=== PATIENT | male | born 1985 | race African-American/Black ===

== ENCOUNTER 2020-11-07 05:10 | Emergency (ER) | payer BC ==
[~2020-11-07] VITALS: Ht 180.3 cm; Wt 56.8 kg
[~2020-11-07 05:10] MED LIST: AUGMENTIN 875 M1 TAB PO; COMBIVENT INH14.7 GM IH; VENTOLIN0.09 MG IH
[2020-11-07] MEDS ORDERED: PRIL40 PO (05:40)
[2020-11-07 05:50] VITALS: BP 108/63; PULSE 68; TEMP 98.2
== END 2020-11-07 05:50 | disposition home or self-care (01) ==
LOC: COL.ER 05:10
DX: S05.42XA Penetrating wound of orbit with or without foreign body, left eye, initial encounter (principal); Z88.1 Allergy status to other antibiotic agents; W22.8XXA Striking against or struck by other objects, initial encounter

== ENCOUNTER → 2021-07-01 | Outpatient (CLI) | payer BC, OTHER ==
[~2021-07-01] MED LIST changes: +PRIL40 PO
== END ==
LOC: ZCOL.LAB 17:05
DX: U07.1 COVID-19 (principal)